=== PATIENT | male | born 1950 | race Caucasian/White ===

== ENCOUNTER 2019-04-01 11:51 | Day surgery (SDC) | payer MEDICARE ==
[~2019-04-01] VITALS: Ht 180.3 cm; Wt 72.1 kg
[2019-04-01] MEDS ORDERED: MULTIVITAMINS1 EAC7 PO (12:21)
--- NOTE | 2019-04-01 14:14 | NUR ---
04/01/19 1414 Nelia Sanchez 1411-PATIENT ARRIVED TO PACU ON 3L NC RR EVEN. PATIENT AWAKE DENIES PAIN OR NAUSEA ENCOURAGED TO PASS GAS. IVF INFUSING. PLACED ON 2L NC. DROWSY DOZES TO SLEEP.
--- NOTE | 2019-04-02 10:51 | OR ---
[facility] [address], [place] [address] Signed DATE OF OPERATION: 04/01/2019 SURGEON: Brain Rodriguez MD PREOPERATIVE DIAGNOSIS: History of polyps in past colonoscopies, last found to have villous adenoma in 2013, [place], [place]. POSTOPERATIVE DIAGNOSIS: Diverticulosis of sigmoid and left colon. PROCEDURE PERFORMED: Total colonoscopy to cecum. ANESTHESIA: Intravenous sedation, fentanyl 150 mcg and Versed 5 mg. INDICATION: This 68-year-old white man has retired to [place] having lived in the [place] area for many years. He last underwent colonoscopy in 2013 in [place], where he was found to have a villous adenoma. Subsequent colonoscopy was normal. He is here for surveillance colonoscopy. He does have family history of colon cancer in his sister 15 years ago. She has had successful treatment for colon cancer. He has no symptoms of bleeding, diarrhea, or constipation at this time. He is admitted to undergo colonoscopy. He understands the risk of bleeding, infection, and perforation. FINDINGS: The prep was excellent. Complete colonoscopy was undertaken to the cecum without question. He had no sign of recurrent or persistent polyps. Diverticula of the sigmoid and left colon. The appendiceal orifice was well visualized as was the terminal ileum. DESCRIPTION OF PROCEDURE: The patient was brought to the endoscopy suite and placed in lateral decubitus position, given intravenous sedation to the point of slurred speech and nystagmus. Digital rectal examination was normal. An Olympus video colonoscope was passed in the rectum and manipulated throughout the colon ultimately intubating the cecum itself. Ileocecal valve and appendiceal orifice were normal. The scope was withdrawn and careful examination throughout showed no sign of polyps or other abnormality. Only diverticular changes as previously described. Electronically Signed By: BRAIN RODRIGUEZ MD 04/02/19 1051 PATIENT NAME: BISMARK ERIC OPERATIVE REPORT DATE OF : 52 REPORT #: [id number] PHYSICIAN: BRAIN RODRIGUEZ MD PCP: ZURDO MILLS MD REPORT IS CONFIDENTIAL AND NOT TO BE RELEASED WITHOUT AUTHORIZATION [facility] [address] [place] [id number] Signed Retroflexed view of the rectum was normal as well. The patient was taken to recovery room in good condition having suffered no complication. CONCLUDING DIAGNOSIS: Diverticulosis. No sign of recurrent or persistent polyps. PLAN: Recommend repeat colonoscopy in 5 years, sooner if clinically indicated. Recommend high-fiber diet as well. He will return to the ongoing care of Dr. Zurdo Mills. MD VINI Abreu/JENIFERL /[id number] cc: Zurdo Mills MD Copies: ZURDO MILLS MD ~ Electronically Signed By: BRAIN RODRIGUEZ MD 04/02/19 1051 PATIENT NAME: BISMARK ERIC OPERATIVE REPORT DATE OF : 52 REPORT #: [id number] PHYSICIAN: BRAIN RODRIGUEZ MD PCP: ZURDO MILLS MD REPORT IS CONFIDENTIAL AND NOT TO BE RELEASED WITHOUT AUTHORIZATION
== END 2019-04-01 14:50 | disposition home or self-care (01) ==
LOC: OPS 11:51 → DS 11:59 → OPS 13:00
PROVIDERS: Surgery
PROC: 0DJD8ZZ Inspection of Lower Intestinal Tract, Via Natural or Artificial Opening Endoscopic (ICD-10-PCS; principal; 2019-04-01 13:00)
DX: Z12.11 Encounter for screening for malignant neoplasm of colon (principal); K57.30 Diverticulosis of large intestine without perforation or abscess without bleeding; Z86.010 Personal history of colon polyps; Z80.0 Family history of malignant neoplasm of digestive organs
CPT/HCPCS: 99153; G0500; J2250; J3010; J7120

== ENCOUNTER 2023-05-21 07:08 | Day surgery (SDC) | payer MEDICARE ==
[2023-05-17 14:21] VITALS: BP 130/80
[~2023-05-21] VITALS: Ht 180.3 cm; Wt 67.0 kg
[~2023-05-21 07:08] MED LIST: ABIRATERONE AC250 MG PO; MULTIVITAMINS1 EAC7 PO; PREDNISONE20 MG PO; RAPAFLO8 MG PO
[2023-05-21 07:23] VITALS: BP 158/86
--- NOTE | 2023-05-21 07:39 | NUR ---
PARTNER JOSE ANGEL HERE AND LEFT. PT READING BOOK GIVEN UPDATE ON WHEN GOING TO O R.
--- NOTE | 2023-05-21 08:46 | NUR ---
requested warm blanket and given. iv patent. reading book.
[2023-05-21 12:48] VITALS: BP 146/85
--- NOTE | 2023-05-21 12:57 | NUR ---
05/21/23 Haritha Reece 1222- PT ARRIVES TO PACU, SEMI DOTY POSITION. PT REACTIVE TO STIMULUS, LR INFUSING TO RFA IV, O2 AT 6L PER MASK. ALL MONITORS IN PLACE. DRESSING IN PLACE TO GROIN, CDI. ABD SOFT, NON DISTENDED. 1230- PT AWAKE BUT SLIGHTLY DROWSY. ANSWERING QUESTIONS APPROPRIATELY. MOVED TO ROOM AIR AT THIS TIME. PT HAS NO COMPLAINTS. CONTINUE TO MONITOR. 1245- PT ALERT AND ORIENTED, NO COMPLAINTS. STATES "I'M FINALLY FEELING NORMAL", WHEN ASKED ABOUT PAIN. PT MOVING ALL EXTREMITIES EQUAL. LR HANGING TO RFA IV. BACK TO DAY SURGERY VIA BED. REPORT TO FRANTZ POLLARD AT BEDSIDE. CARE OF PT TURNED OVER AT THIS TIME.
--- NOTE | 2023-05-21 13:55 | NUR ---
1340 HAS BEEN UP TO BR AGAIN VOIDS QS. REQUESTS TO GO HOME. JOSE ANGEL IN LOBBY TO TAKE PT HOME.
--- NOTE | 2023-05-22 17:24 | OR ---
[facility] [facility] [address] [place], [place] [address] Signed DATE OF OPERATION: 05/21/2023 SURGEON: Gracy Esparza MD PREOPERATIVE DIAGNOSIS: Advanced prostate cancer. POSTOPERATIVE DIAGNOSIS: Advanced prostate cancer. NAMES OF PROCEDURE: Bilateral simple orchiectomy. ANESTHESIA: 1. General. 2. 20 mL of 0.25% bupivacaine plain. ESTIMATED BLOOD LOSS: 5 mL. COMPLICATIONS: None. DRAINS: None. SPECIMENS: Bilateral testicle sent separately to pathology for evaluation. INDICATION FOR PROCEDURE: Mr. Hull is a very pleasant 72-year-old gentleman who was recently diagnosed with high risk prostate cancer after undergoing a prostate biopsy here at [facility]. He has since seen an oncologist and is now on abiraterone for treatment of his prostate cancer. He has undergone one GnRH agonist injection for management of his testosterone levels. He has elected to undergo bilateral orchiectomy to definitively drop his testosterone levels given his recent diagnosis. As of May 17, his testosterone was less than 3. His most recent PSA on a GnRH agonist is 32.9. After discussion of the risks and benefits of bilateral simple orchiectomy, the patient has agreed to proceed. Electronically Signed By: GRACY ESPARZA MD 05/22/23 1724 PATIENT NAME: BISMARK HULL OPERATIVE REPORT DATE OF : 52 REPORT #: [id number] PHYSICIAN: GRACY ESPARZA MD PCP: YADI BURRELL MD REPORT IS CONFIDENTIAL AND NOT TO BE RELEASED WITHOUT AUTHORIZATION [facility] [address] [place], [place] [address] Signed OPERATIVE FINDINGS: 1. Visual inspection of the external genitalia reveals a normal circumcised phallus with a glanular meatus. His testicles are descended bilaterally and are of normal size and consistency with no palpable masses. 2. A 16-Sami Blal catheter was inserted at the beginning of the procedure, and then was removed just prior to waking the patient from general anesthetic. 3. The patient's bilateral testicles were removed via a median raphae incision. The left testicle was removed first, followed by the right. The spermatic cord was into two bundles, one that included the vas deferens and the other the vascular bundle. Each bundle was secured using 2-0 and 0-silk twice. There was excellent hemostasis at the end of the procedure. No drains were placed. DESCRIPTION OF PROCEDURE: After informed consent was obtained, the patient was taken back to the operating room. [facility] was [facility] to the operating room table, where general anesthesia was induced. Approximately 10 mL of 0.25% bupivacaine plain were injected into each spermatic cord and in the area of the median raphae. The median raphae were marked and approximately 5 cm vertical incision was made along the median raphae using a 15 blade. This was dissected down using electrocautery into the dartos tissue. The left testicle was delivered from the scrotal incision first and was bluntly dissected free. The peritesticular tissue was removed via electrocautery down to the level of tunic albuginea. The tunic albuginea was incised and the testicle was removed from the tunic. All the excess tunica was removed as needed using Bovie electrocautery. The external spermatic fascia was also excised around the spermatic cord to free the spermatic cord further up closer to the pubic tubercle. The spermatic cord was then divided into two bundles. One bundle included the vas deferens and the other bundle was primarily the vasculature of the spermatic cord including the testicular artery and pampiniform plexus. Each separate bundle was ligated twice. The distal aspect of the bundle was ligated using a 2-0 stick tie. The second ligation was placed just proximal to this and was a 0-silk suture. The same ligation was performed with the other vascular bundle. I released the clamp and could appreciate excellent hemostasis on both the bundles. Once I was satisfied with the ligation of both bundles of the spermatic cord. I released the spermatic cord and it drifted up toward the pubic tubercle. Exact same procedure was performed on the right side to remove the right testicle. After both testicles were removed, hemostasis was achieved again using the Bovie electrocautery. The empty scrotum was then copiously irrigated with saline. Once I was satisfied that hemostasis had been achieved, I then closed the scrotum in two layers. I first closed the dartos fascia in a running fashion using 4-0 Vicryl. I then closed the skin in a couple of select areas using 4-0 Vicryl in a horizontal mattress fashion. The most superficial aspect of this scrotal skin was closed using a subcutaneous suture again with 4-0 Vicryl. The incision was then cleaned and dried and then Dermabond was applied. The indwelling Ball catheter was then removed. The procedure was then terminated. The Electronically Signed By: GRACY ESPARZA MD 05/22/23 1724 PATIENT NAME: BISMARK HULL OPERATIVE REPORT DATE OF : 52 REPORT #: [id number] PHYSICIAN: GRACY ESPARZA MD PCP: YADI BURRELL MD REPORT IS CONFIDENTIAL AND NOT TO BE RELEASED WITHOUT AUTHORIZATION [facility] [address] [place] [address] Signed patient tolerated the procedure well without any complication. He will now be transferred to the postanesthesia care unit in stable condition. DISPOSITION: I discussed the details of today's procedure with the patient's , Trixie, and answered all of her questions. The patient will need to avoid any heavy exertional activity for at least four weeks or so. He was sent home today with cephalexin 500 mg p.o. t.i.d. for seven days, along with oxycodone 5 mg 1-2 tablets p.o. q.4-6 hours p.r.n. pain, dispense #30. He will be scheduled to return to clinic to see me in approximately 2-3 weeks for his first postoperative evaluation. The patient was also notified of the results of his most recent testosterone and PSA levels today. Gracy Esparza MD AR/MODL /[id number] Copies: ~ Electronically Signed By: GRACY ESPARZA MD 05/22/23 1724 PATIENT NAME: FONGER,BISMARK DEVIN OPERATIVE REPORT DATE OF : 52 REPORT #: [id number] PHYSICIAN: GRACY ESPARZA MD PCP: YADI BURRELL MD REPORT IS CONFIDENTIAL AND NOT TO BE RELEASED WITHOUT AUTHORIZATION
--- NOTE | 2023-05-24 15:02 | PATH ---
[facility] [address] [place], [place] [address] Signed SPECIMEN(S): A LEFT TESTICLE SPECIMEN(S): B RIGHT TESTICLE SPECIMEN SOURCE: A. LEFT TESTICLE B. RIGHT TESTICLE CLINICAL HISTORY: Prostate cancer. FINAL PATHOLOGIC DIAGNOSIS: A. Left testicle: - Benign testicle. B. Right testicle: - Benign testicle. ValenciaVR:natalie MICROSCOPIC EXAMINATION: Histologic sections of all submitted blocks are examined by light microscopy. These findings, together with the gross examination, support the pathologic diagnosis. GROSS DESCRIPTION: A. The specimen, labeled and designated "Kurtis left testicle," is received in formalin and consists of testis with attached spermatic cord and surrounding soft tissue that measure 6.2 x 5.0 x 1.5 and weighing 26 grams overall. The testis measures 3.5 x 2.5 x 2.0 cm. The epididymis measures 5.0 x 0.7 cm. The spermatic cord is 3.7 cm in length and 0.8 cm in average diameter. The tunica vaginalis is pink-mott, smooth. The tunica albuginea is sevilla-mott and smooth. The testicular parenchyma is yellow-mott, homogenous. No abnormalities are grossly identified. Plant Floor Automation Manager sections are submitted in (A1). B. The specimen, labeled and designated "Kurtis right testicle," is received in formalin and consists of testis with attached spermatic cord and surrounding soft tissue that measure 5.5 x 4.4 x 2.2 cm and weighing 28 grams overall. The testis measures 3.5 x 2.5 x 2.5 cm. The epididymis measures 4.5 x 1.1 cm. The spermatic cord is 3.5 cm in length and 1.1 cm in diameter. The tunica vaginalis is pink-mott, smooth. The tunica albuginea is sevilla-mott and smooth. The PATIENT NAME: BISMARK ERIC PATHOLOGY DATE OF : 52 REPORT #: [id number] PHYSICIAN: LAKESHA PATHOLOGY PCP: YADI BURRELL MD REPORT IS CONFIDENTIAL AND NOT TO BE RELEASED WITHOUT AUTHORIZATION [facility] [address] [place], [place] [address] Signed testicular parenchyma is yellow-mott, homogenous. No abnormalities are grossly identified. Plant Floor Automation Manager sections are submitted in (B1). JS (under the direct supervision of a pathologist) The Gross Description was prepared using a voice recognition system. The report was reviewed for accuracy; however, sound-alike word errors, addition and/or deletions may occur. If there is any question about this report, please contact Client Services. ADDITIONAL NOTES: Immunohistochemical and/or in situ hybridization studies if performed in this case included appropriate positive controls that reacted as expected. This test was developed and its performance characteristics determined by [facility]. It has not been cleared or approved by the U.S. Food and Drug Administration. The FDA has determined that such clearance or approval is not necessary. This test is used for clinical purposes. It should not be regarded as investigational or for research. [facility] is certified under the Clinical Laboratory Improvement Amendments of 1988 (CLIA) as qualified to perform high complexity clinical laboratory testing. PERFORMING LABORATORY: Technical component was performed by [facility], [address] [place] [id number] (CLIA# [id number]). Professional interpretation was performed by [facility] - [facility], [address] [place] [address], [place] [address] (CLIA#: [id number]). Diagnostician: Giorgi Jerez MD Pathologist Electronically Signed 05/24/2023 Copies: ~ PATIENT NAME: BISMARK ERIC PATHOLOGY DATE OF : 52 REPORT #: [id number] PHYSICIAN: LAKESHA LOPEZ PCP: YADI BURRELL MD REPORT IS CONFIDENTIAL AND NOT TO BE RELEASED WITHOUT AUTHORIZATION
== END 2023-05-21 13:42 | disposition home or self-care (01) ==
LOC: DS 07:08 → OPS 07:08 → DS 08:50 → OPS 13:42
PROVIDERS: ATTEND Urology
PROC: 0VTC0ZZ Resection of Bilateral Testes, Open Approach (ICD-10-PCS; principal; 2023-05-21 08:50)
DX: C61 Malignant neoplasm of prostate (principal); N40.1 Benign prostatic hyperplasia with lower urinary tract symptoms
CPT/HCPCS: 00920; 88302; 88309; J0131; J0690; J1100; J2001; J2405; J2704; J3010; J3475; J3490; J7121

== ENCOUNTER 2023-12-10 09:34 | Day surgery (SDC) | payer MEDICARE ==
[2023-11-22 10:28] VITALS: BP 125/79
[~2023-12-10] VITALS: Ht 180.3 cm; Wt 72.7 kg
[~2023-12-10 09:34] MED LIST changes: +CEFAZOLIN SODIUM 2 GM/20 ML SYR IV SCH; +FISH OIL 1,001000 MG PO; +IBLOOD GLUCOSE TEST STRIP 1 EA TEST VI PRN; +IRBESARTAN75 MG PO; +LACTATED RINGER'S 1,000 ML IV SCH; +LIDOCAINE HCL 1% 5 ML SDV INJ ONE; +METOPROLOL SUCC50 MG PO; +VITAMIN B COMP1 EAC1 PO
[2023-12-10 10:07] VITALS: BP 143/85
[2023-12-10] MEDS ORDERED: BUPIVACAINE 0.75% IN DEXTROSE 2 ML AMP ONE (11:55)
[2023-12-10] MEDS ORDERED: propofoL 200 MG/20 ML VIAL ONE ×2 (11:55→13:29)
[2023-12-10] MEDS ORDERED: DEXAMETHASONE SOD PHOS 4 MG/ML VIAL ONE (11:55)
[2023-12-10] MEDS ORDERED: fentaNYL citrate 100 MCG/2 ML VIAL ONE (11:55)
[2023-12-10] MEDS ORDERED: LIDOCAINE HCL 2% 5 ML SDV ONE (11:56)
[2023-12-10] MEDS ORDERED: LACTATED RINGER'S 1,000 ML IV SCH (12:00)
[2023-12-10] MEDS ORDERED: ondansetron HCL 4 MG/2 ML VIAL IV PRN (12:00)
[2023-12-10] MEDS ORDERED: HYDROmorphone HCL 1 MG/ML SYR IV PRN (12:00)
[2023-12-10] MEDS ORDERED: diphenhydrAMINE HCL 25 MG CAP PO PRN (12:00)
[2023-12-10] MEDS ORDERED: OXYCODONE/APAP 5/325 TAB PO PRN (12:00)
[2023-12-10] MEDS ORDERED: TRANEXAMIC ACID 1,000 MG/10 ML AMP ONE (13:15)
[2023-12-10] MEDS ORDERED: iopamidoL 30 ML VIAL ONE ×2 (13:29→13:34)
[2023-12-10] MEDS ORDERED: KETAMINE in NS 50 MG/5 ML SYR ONE (13:35)
--- NOTE | 2023-12-10 14:18 | NUR ---
12/10/23 1418 Juany Rodas 1403- PT ARRIVES TO PACU AWAKE AND TALKING. PT REPORTS NO PAIN OR NAUSEA. RESP EVEN AND UNLABORED. OXYGEN SAT MID TO HIGH 90'S ON RA. CBI INFUSING. FLUID IN THE CATHETER LINE IS CLEAR WITH NO CLOTS. CBI TURNED DOWN. 1416- PT SAT UP SLIGHTLY IN BED. DENIES DIZZINESS OR NAUSEA. PROVIDED ICE WATER PER HIS REQUEST. TOLERATING WELL.
[2023-12-10 14:54] VITALS: BP 142/75
--- NOTE | 2023-12-10 14:55 | NUR ---
PT TO MED-SURG ALERT AND INTERACTIVE. DENIES DISCOMFORTS OR NEEDS OF. ORIENTED TO ROOM, CALL LIGHT, AND ROUTINE. MENU PROVIDED PT ENCOURAGED TO MAKE ANY WANTS OR DISCOMFORTS KNOWN. UNDERSTANDING VERBALIZED.
--- NOTE | 2023-12-10 15:06 | NUR ---
PATIENT ALERT AND ORIENTED IN BED. STATES HE LIVES IN SINGLE LEVEL HOME WITH JOSE ANGEL, SIGNIFICANT OTHER. 1-2 SMALL STEPS HE NAVIGATES WITHOUT ISSUES. STATES HE HAS NO DME AND REMAINS ABLE TO DRIVE. DENIES FINANCIAL BURDEN. PATIENT VERIFIES DEMOGRAPHICS. DENIES ANY NEEDS AT HOME. INSTRUCTED TO NOTIFY STAFF IF NEEDS ARISE. VERBALIZES UNDERSTANDING.
--- NOTE | 2023-12-10 15:32 | NUR ---
UR CLINICAL REVIEW: 2 MN FOR VERSALUS-MEETS CRITERIA FOR ADMISSION MEDICARE EXTENDED RECOVERY 12/10/23 @ 1155 NO AUTH REQUIRED PER MEDICARE GUIDELINE PLAN FOR DISCHARGE IN THE AM IF STABLE
[2023-12-10 15:37] VITALS: BP 140/70
[2023-12-10 16:34] VITALS: BP 143/74
--- NOTE | 2023-12-10 16:39 | NUR ---
PT RESTING IN BED COMPANY HAS LEFT. PT DENIES ANY PAIN. SENSATION HAS RETURNED TO LOWER EXTREMITIES. CROWELL IS DRAINING CLEAR YELLOW URINE CBI IS CLAMPED. PT DENIES NEEDS. CALL LIGHT ON BED
--- NOTE | 2023-12-10 16:56 | NUR ---
PAIN MEDS AND TIMES REVIEWED WITH PT PER HIS REQUEST ALSO REVIEWED SCHEDULED REGULAR MEDS WELL. PT CONTINUES WITHOUT DISCOMFORT REPORTS HE IS GOING TO REST EYES CLOSED FOR A TIME ANTICIPATES EVENING MEAL SOON
--- NOTE | 2023-12-10 17:57 | NUR ---
PT EATS ENTIRE EVENING MEAL DENIES DISCOMFORTS OR NEEDS. REMAINS IN BED WITH CROWELL DRAINING CLEAR YELLOW URINE.
--- NOTE | 2023-12-10 18:31 | NUR ---
DR ESPARZA CALLS FOR UPDATE ON PT, REPORTS SHE WILL BE IN AROUND 0740 TOMORROW.
--- NOTE | 2023-12-10 19:10 | NUR ---
REPORT RECEIVED FROM IKER POLLARD. pt RESTING IN THE BED. BOARD UPDATED. pt DENIES ANY NEEDS AT THIS TIME. CALL LIGHT WITHIN REACH.
[2023-12-10 20:25] VITALS: BP 139/79
--- NOTE | 2023-12-10 20:25 | NUR ---
ASSESSMENT AND VITAL SIGNS DONE. CROWELL EMPTIED. BLOODY SEDIMENT IN THE CROWELL TUBING BUT NO SIGNS OF BLOOD CLOTS. AFTER THE CROWELL WAS EMPTIED THE URINE WAS YELLOW IN THE TUBING. pt C/O 08/18 PAIN. PRN PAIN MEDS ADMINISTERED. pt DENIES ANY OTHER NEEDS AT THIS TIME. CALL LIGHT WITHIN REACH. WATER REFRESHED.
--- NOTE | 2023-12-10 23:30 | NUR ---
pt RESTING IN THE BED. pt DENIES ANY NEEDS AT THIS TIME. CALL LIGHT WITHIN REACH.
[2023-12-11 01:39] VITALS: BP 137/76
--- NOTE | 2023-12-11 01:40 | NUR ---
ASSESSMENT AND VITAL SIGNS DONE. pt C/O 08/18 PAIN. PRN PAIN MEDS ADMINISTERED. pt DENIES ANY OTHER NEEDS AT THIS TIME. CALL LIGHT WITHIN REACH.
--- NOTE | 2023-12-11 03:55 | NUR ---
pt RESTING IN THE BED. pt DENIES ANY NEEDS AT THIS TIME. CALL LIGHT WITHIN REACH.
[2023-12-11 05:25] VITALS: BP 143/80
--- NOTE | 2023-12-11 05:30 | NUR ---
ASSESSMENT AND VITAL SIGNS DONE. pt RESTING IN THE BED. WATER REFRESHED. pt DENIES ANY OTHER NEEDS AT THIS TIME. CALL LIGHT WITHIN REACH. URINE IS YELLOW IN THE TUBE AFTER THE CROWELL IS DRAINED.
--- NOTE | 2023-12-11 07:01 | NUR ---
PT AWAKE AND RESTING IN BED WITH CALL LIGHT WITHIN REACH. NO REQUESTS AT THIS TIME. REPORT RECEIVED FROM ABEL POLLARD
[2023-12-11] MEDS ORDERED: DOCUSATE SODIUM 100 MG CAP PO ONE (08:00)
[2023-12-11] MEDS ORDERED: OXYCODONE HCL5 MG PO (08:24)
[2023-12-11] MEDS ORDERED: LEVOFLOXACIN500 MG PO (08:25)
[2023-12-11] MEDS ORDERED: predniSONE 20 MG TAB PO SCH (09:00)
[2023-12-11] MEDS ORDERED: LOSARTAN POTASSIUM 50 MG TAB PO SCH (09:00)
[2023-12-11] MEDS ORDERED: METOPROLOL SUCCINATE 50 MG TABCR PO SCH (09:00)
[2023-12-11] MEDS ORDERED: predniSONE 5 MG TAB PO SCH (09:00)
[2023-12-11] MEDS ORDERED: CEFTRIAXONE/SODIUM CHLORIDE 1 GM/100 ML PIGGYBACK IV SCH (09:00)
[2023-12-11 09:01] VITALS: BP 137/83
--- NOTE | 2023-12-11 09:04 | NUR ---
PATIENT AWAKE IN BED, VITALS AND I&OS CHARTED. CROWELL EMPTIED. CALL LIGHT IN EASY REACH.
--- NOTE | 2023-12-11 09:39 | NUR ---
catheter care provided, and bladder irrigation plug placed. pt tolerated well.
--- NOTE | 2023-12-11 10:20 | NUR ---
thomas catheter education given to pt (emptying, care, etc.). 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
--- NOTE | 2023-12-11 10:21 | NUR ---
pharmacy in to visit with pt
[2023-12-11 10:42] VITALS: BP 130/93
--- NOTE | 2023-12-11 11:03 | NUR ---
D/C VITALS CHARTED. S/O IN ROOM TO ASSIST WITH DRESSING.
--- NOTE | 2023-12-18 17:01 | PATH ---
[facility] [address] [place], [place] [address] Signed SPECIMEN(S): A PROSTATE CHIPS SPECIMEN SOURCE: A. PROSTATE CHIPS CLINICAL HISTORY: BPH with LUTS, TURP FINAL PATHOLOGIC DIAGNOSIS: Prostate, transurethral resection: - Prostatic adenocarcinoma (see synoptic). PROSTATE GLAND: Transurethral Prostatic Resection (TURP), Enucleation Specimen (Simple or Subtotal Prostatectomy) Applies To: Transurethral resection SPECIMEN Procedure: Transurethral resection of the prostate (TURP) TUMOR Histologic Type: Acinar adenocarcinoma, conventional (usual) Histologic Grade Grade: Grade group 3 ([place] Carson Score 4 + 3 = 7) Percentage of Pattern 4: 81 - 90% Percentage of Pattern 4: 90% Percentage of Pattern 5: 0% Intraductal Carcinoma (IDC): Not identified Cribriform Glands: Present Treatment Effect: No known presurgical therapy TUMOR QUANTITATION Estimated Percentage of Prostate Involved by Tumor: 31 - 40% Number of Positive Chips: 72 Total Number of Chips: 120 Lymphatic and / or Vascular Invasion: Not identified Perineural Invasion: Present COMMENT: As part of the Social Science Analyst Program, this case was reviewed by another member of [facility] ([facility]). DEANGELO MICROSCOPIC EXAMINATION: Histologic sections of all submitted blocks are examined by light microscopy. These findings, together with the gross examination, support the pathologic PATIENT NAME: BISMARK ERIC PATHOLOGY DATE OF : 52 REPORT #: [id number] PHYSICIAN: FLORENTINJoshfire PATHOLOGY PCP: YADI BURRELL MD REPORT IS CONFIDENTIAL AND NOT TO BE RELEASED WITHOUT AUTHORIZATION [facility] [address] [place], [place] [address] Signed diagnosis. GROSS DESCRIPTION: The specimen, labeled and designated "Fonger, " and designated on the requisition "prostate chips," is received in formalin and consists of multiple fragments of pink-mott soft rubbery tissue (8 g, 4.0 x 3.5 x 2.0 cm in aggregate). The specimen is submitted entirely in cassette A1-A6. AC (under the direct supervision of a pathologist) The Gross Description was prepared using a voice recognition system. The report was reviewed for accuracy; however, sound-alike word errors, addition and/or deletions may occur. If there is any question about this report, please contact Client Services. ADDITIONAL NOTES: Immunohistochemical and/or in situ hybridization studies if performed in this case included appropriate positive controls that reacted as expected. This test was developed and its performance characteristics determined by [facility]. It has not been cleared or approved by the U.S. Food and Drug Administration. The FDA has determined that such clearance or approval is not necessary. This test is used for clinical purposes. It should not be regarded as investigational or for research. [facility] is certified under the Clinical Laboratory Improvement Amendments of 1988 (CLIA) as qualified to perform high complexity clinical laboratory testing. PERFORMING LABORATORY: Technical component was performed by [facility], [address] [place] [id number] (CLIA# [id number]). Professional interpretation was performed by [facility] - [facility], [address] [place] [address] (CLIA#:[id number]). Diagnostician: Juan Alberto Liriano MD Pathologist Electronically Signed 12/18/2023 Copies: ~ PATIENT NAME: JEANETHBISMARK DEVIN PATHOLOGY DATE OF : 52 REPORT #: [id number] PHYSICIAN: LAKESHA PATHOLOGY PCP: YADI BURRELL MD REPORT IS CONFIDENTIAL AND NOT TO BE RELEASED WITHOUT AUTHORIZATION
== END 2023-12-11 11:00 | disposition home or self-care (01) ==
LOC: DS 09:34 → MS 14:45 → DS 12-11 11:00
PROVIDERS: ATTEND Urology
PROC: 0VB07ZZ Excision of Prostate, Via Natural or Artificial Opening (ICD-10-PCS; principal; 2023-12-10 13:05)
DX: N40.1 Benign prostatic hyperplasia with lower urinary tract symptoms (principal); C61 Malignant neoplasm of prostate; N32.89 Other specified disorders of bladder
CPT/HCPCS: 00914; 74430; 88305; C1769; J0690; J0696; J1100; J2001; J2704; J3010; J3490; J7121; Q9958

== ENCOUNTER 2024-01-06 20:45 | Emergency (ER) | payer MEDICARE ==
[~2024-01-06] VITALS: Ht 180.3 cm; Wt 74.2 kg
[~2024-01-06 20:45] MED LIST changes: -CEFAZOLIN SODIUM 2 GM/20 ML SYR IV SCH; -IBLOOD GLUCOSE TEST STRIP 1 EA TEST VI PRN; -LACTATED RINGER'S 1,000 ML IV SCH; +LEVOFLOXACIN500 MG PO; -LIDOCAINE HCL 1% 5 ML SDV INJ ONE; +OXYCODONE HCL5 MG PO
[2024-01-06 21:41] VITALS: BP 148/89
== END 2024-01-06 21:41 | disposition home or self-care (01) ==
LOC: ED 20:45
DX: J34.3 Hypertrophy of nasal turbinates (principal); I10 Essential (primary) hypertension; Z79.899 Other long term (current) drug therapy
CPT/HCPCS: 99282